=== PATIENT | male | born 1940 | race Caucasian/White ===

== ENCOUNTER 2016-10-26 11:41 | Inpatient (IN) | payer OTHER ==
[~2016-10-26] VITALS: Ht 170.2 cm; Wt 82.2 kg
[2016-10-26] VITALS (8 sets, daily range): BP systolic 98–128; BP diastolic 56–80
[~2016-10-26 11:41] MED LIST: ASPIR 8181 M1 PO; CARVEDILOL6.25 MG PO; CIPRO500 MG PO; COZAAR100 MG PO; CRESTOR20 MG PO; ELIQUIS5 MG PO; ENDOCET 5-3251 EACH PO; FINASTERIDE5 MG PO; FISH OIL 1,0001 EAC7 PO; FLUVIRIN IM; FOLIC ACID1 MG PO; HYDROCODON-ACE1 EAC8 PO; LORAZEPAM1 MG PO; LOSARTAN POTAS100 MG PO; METFORMIN HCL1000 MG PO; METFORMIN HCL500 MG PO; NIFEDICAL XL30 MG PO; NIFEDIPINE ER60 MG PO; PERCOCET 5/31 TABLET PO; ROPINIROLE HCL1 MG PO; TRAZODONE HCL50 MG PO; TYLENOL REGULA325 MG PO; ULTRAM50 MG PO; VALIUM5 MG PO; VITAMIN B-12500 MC2 PO; VITAMIN B-650 MG PO; XARELTO20 MG PO
[2016-10-26 12:37] LABS: EOSINOPHIL (%) 3.4 % (0-5); EOSINOPHIL COUNT 0.2 K/uL (0-0.3); HEMATOCRIT 23.3 % (38.0-50.0); IMMATURE GRANULOCYTE (%) 0.5 % (0.0-0.7); INSTRUMENT ABS NEUTROPHIL CT 4.5 K/uL; LYMPHOCYTE COUNT 0.9 K/uL (1.0-2.8); MCH 30.7 PG (29.0-34.0); MCHC 32.2 G/DL (30.0-36.0); MCV 95.5 FL (86-99); MEAN PLAT.VOLUME 10.4 uM^3 (9.0-12.4); MONOCYTE (%) 7.7 % (3-12); MONOCYTE COUNT 0.5 K/uL (0-0.8); NEUTROPHIL (%) 73.3 % (45-76); NEUTROPHIL COUNT 4.5 K/uL (1.8-6.4); PLATELET COUNT 301 K/uL (156-360); RBC DIS.WIDTH-CV 14.6 % (11.8-14.6); RBC DIS.WIDTH-SD 49.5 % (39-53); RED BLOOD COUNT 2.44 M/uL (4.00-5.50); WHITE BLOOD COUNT 6.1 K/uL (4.1-10.2)
[2016-10-26 12:44] LABS: INTER. NORMALIZED RATIO 1.5; PROTHROMBIN TIME 15.1 (9.2-11.2)
[2016-10-26 12:52] LABS: CHLORIDE 108 mEq/L (99-109); POTASSIUM 4.6 mEq/L (3.7-5.4); SODIUM 138 mEq/L (136-147)
[2016-10-26 12:54] LABS: GLUCOSE 91 mg/dL (70-99)
[2016-10-26 12:55] LABS: ANION GAP 10 MEQ/L (2-14)
[2016-10-26 12:58] LABS: GFR ESTIMATE (CALCULATED) > 59 mL/min/
[2016-10-26 12:59] LABS: UREA NITROGEN (BUN) 18 mg/dL (9-23)
[2016-10-26] MEDS ORDERED: CYANOCOBALAM1000 MCG PO (15:30)
[2016-10-26] MEDS ORDERED: METFORMIN HCL1000 MG PO (15:31)
[2016-10-26] MEDS ORDERED: NIFEDIPINE ER30 MG PO (15:32)
[2016-10-26] MEDS ORDERED: DUTASTERIDE0.5 MG PO (15:34)
[2016-10-26] MEDS ORDERED: OXYCODONE HCL5 MG PO (15:34)
[2016-10-26] MEDS ORDERED: NITROGLYCERIN0.4 MG SL (15:35)
[2016-10-26] MEDS ORDERED: LIPITOR40 MG PO (15:36)
[2016-10-27 03:24] VITALS: BP 95/54
[2016-10-27 07:15] VITALS: BP 115/58
[2016-10-27 07:57] LABS: HEMATOCRIT 27.2 % (38.0-50.0); MCV 92.8 FL (86-99)
[2016-10-27 08:10] LABS: INTER. NORMALIZED RATIO 1.1; PROTHROMBIN TIME 11.5 (9.2-11.2); PTT 23.8 (25-32)
[2016-10-27 08:23] LABS: ALKALINE PHOSPHATASE 54 IU/L (3-129); ANION GAP 7 MEQ/L (2-14); CHLORIDE 110 MEQ/L (99-109); GFR ESTIMATE (CALCULATED) > 59 mL/min/; GLUCOSE 81 mg/dL (70-99); POTASSIUM 4.1 MEQ/L (3.7-5.4); SAMPLE HEMOLYSIS CHECK 0; SAMPLE ICTERIC CHECK 0; SAMPLE LIPEMIA CHECK 0; SODIUM 141 MEQ/L (136-147); TOTAL BILIRUBIN 0.5 MG/DL (0.0-1.0); UREA NITROGEN (BUN) 14 mg/dL (9-23)
[2016-10-27 11:54] VITALS: BP 114/59
[2016-10-27 15:25] VITALS: BP 119/61
[2016-10-27 17:49] LABS: POINT-OF-CARE METER ID UU13113819
[2016-10-27 19:14] VITALS: BP 137/66
[2016-10-27 20:10] LABS: HEMATOCRIT 29.5 % (38.0-50.0); MCV 92.2 FL (86-99)
[2016-10-27 23:01] VITALS: BP 139/62
[2016-10-28 03:47] VITALS: BP 132/71
[2016-10-28 07:33] LABS: ANION GAP 11 MEQ/L (2-14); CHLORIDE 109 MEQ/L (99-109); GFR ESTIMATE (CALCULATED) > 59 mL/min/; GLUCOSE 69 mg/dL (70-99); POTASSIUM 4.2 MEQ/L (3.7-5.4); SAMPLE HEMOLYSIS CHECK 0; SAMPLE ICTERIC CHECK 0; SAMPLE LIPEMIA CHECK 0; SODIUM 142 MEQ/L (136-147); UREA NITROGEN (BUN) 11 mg/dL (9-23)
[2016-10-28 07:48] VITALS: BP 1347/63
[2016-10-28 08:23] LABS: HEMATOCRIT 26.6 % (38.0-50.0); MCV 92.7 FL (86-99)
[2016-10-28 08:25] LABS: EOSINOPHIL (%) 5.8 % (0-5); EOSINOPHIL COUNT 0.3 K/uL (0-0.3); HEMATOCRIT 27.2 % (38.0-50.0); IMMATURE GRANULOCYTE (%) 0.2 % (0.0-0.7); INSTRUMENT ABS NEUTROPHIL CT 2.7 K/uL; LYMPHOCYTE COUNT 0.8 K/uL (1.0-2.8); MCH 30.4 PG (29.0-34.0); MCHC 33.1 G/DL (30.0-36.0); MCV 91.9 FL (86-99); MEAN PLAT.VOLUME 10.2 uM^3 (9.0-12.4); MONOCYTE (%) 10.7 % (3-12); MONOCYTE COUNT 0.5 K/uL (0-0.8); NEUTROPHIL (%) 63.8 % (45-76); NEUTROPHIL COUNT 2.7 K/uL (1.8-6.4); PLATELET COUNT 263 K/uL (156-360); RBC DIS.WIDTH-CV 14.7 % (11.8-14.6); RBC DIS.WIDTH-SD 48.9 % (39-53); WHITE BLOOD COUNT 4.3 K/uL (4.1-10.2)
[2016-10-28 08:29] LABS: RED BLOOD COUNT 2.96 M/uL (4.00-5.50)
[2016-10-28 12:34] LABS: POINT-OF-CARE METER ID UU13113694
[2016-10-28 13:09] LABS: POINT-OF-CARE METER ID UU13113819; POINT-OF-CARE USER ID ADMKMM76
[2016-10-28 16:43] VITALS: BP 138/66
[2016-10-28 20:09] VITALS: BP 113/59
[2016-10-28 20:34] LABS: HEMATOCRIT 29.6 % (38.0-50.0); MCV 93.1 FL (86-99)
[2016-10-29] VITALS (8 sets, daily range): BP systolic 107–132; BP diastolic 60–75
[2016-10-29 06:32] LABS: HEMATOCRIT 25.7 % (38.0-50.0); MCV 91.8 FL (86-99)
[2016-10-29 06:33] LABS: EOSINOPHIL (%) 4.5 % (0-5); EOSINOPHIL COUNT 0.2 K/uL (0-0.3); HEMATOCRIT 26.2 % (38.0-50.0); IMMATURE GRANULOCYTE (%) 0.4 % (0.0-0.7); INSTRUMENT ABS NEUTROPHIL CT 3.5 K/uL; LYMPHOCYTE COUNT 0.9 K/uL (1.0-2.8); MCH 30.1 PG (29.0-34.0); MCHC 32.8 G/DL (30.0-36.0); MCV 91.6 FL (86-99); MEAN PLAT.VOLUME 10.3 uM^3 (9.0-12.4); MONOCYTE COUNT 0.6 K/uL (0-0.8); NEUTROPHIL (%) 64.9 % (45-76); NEUTROPHIL COUNT 3.5 K/uL (1.8-6.4); PLATELET COUNT 248 K/uL (156-360); RBC DIS.WIDTH-CV 14.5 % (11.8-14.6); RBC DIS.WIDTH-SD 48.4 % (39-53); RED BLOOD COUNT 2.86 M/uL (4.00-5.50); WHITE BLOOD COUNT 5.3 K/uL (4.1-10.2)
[2016-10-29 09:01] LABS: ANION GAP 8 MEQ/L (2-14); CHLORIDE 109 MEQ/L (99-109); GFR ESTIMATE (CALCULATED) 48 mL/min/; GLUCOSE 131 mg/dL (70-99); POTASSIUM 3.8 MEQ/L (3.7-5.4); SAMPLE HEMOLYSIS CHECK 0; SAMPLE ICTERIC CHECK 0; SAMPLE LIPEMIA CHECK 0; SODIUM 142 MEQ/L (136-147); UREA NITROGEN (BUN) 11 mg/dL (9-23)
[2016-10-29] MEDS ORDERED: PANTOPRAZOLE SO40 MG PO (12:34)
== END 2016-10-29 17:10 | disposition home or self-care (01) | DRG 378 ==
LOC: EME 11:41 → 5EAST 15:03 → EDOF 15:03 → 5EAST 20:28
PROVIDERS: Emergency Medicine; Family Medicine Sports Medicine
PROC: 30233N1 Transfusion of Nonautologous Red Blood Cells into Peripheral Vein, Percutaneous Approach (ICD-10-PCS; principal; 2016-10-26)
PROC: 0DJ08ZZ Inspection of Upper Intestinal Tract, Via Natural or Artificial Opening Endoscopic (ICD-10-PCS; 2016-10-27)
PROC: 0DJD8ZZ Inspection of Lower Intestinal Tract, Via Natural or Artificial Opening Endoscopic (ICD-10-PCS; 2016-10-28)
DX: K92.2 Gastrointestinal hemorrhage, unspecified (principal); E11.9 Type 2 diabetes mellitus without complications; I48.2 Chronic atrial fibrillation; N40.0 Benign prostatic hyperplasia without lower urinary tract symptoms; Z87.442 Personal history of urinary calculi; Z90.79 Acquired absence of other genital organ(s); Z95.0 Presence of cardiac pacemaker; I95.9 Hypotension, unspecified; K92.1 Melena; I10 Essential (primary) hypertension; E78.00 Pure hypercholesterolemia, unspecified; M19.90 Unspecified osteoarthritis, unspecified site; E78.5 Hyperlipidemia, unspecified; K21.9 Gastro-esophageal reflux disease without esophagitis; Z87.440 Personal history of urinary (tract) infections; Z79.01 Long term (current) use of anticoagulants; I25.10 Atherosclerotic heart disease of native coronary artery without angina pectoris; K57.90 Diverticulosis of intestine, part unspecified, without perforation or abscess without bleeding; D12.2 Benign neoplasm of ascending colon; D12.5 Benign neoplasm of sigmoid colon; K64.8 Other hemorrhoids; Z88.0 Allergy status to penicillin; Z87.891 Personal history of nicotine dependence; Z79.84 Long term (current) use of oral hypoglycemic drugs; D62 Acute posthemorrhagic anemia
CPT/HCPCS: 74250; 80048; 80053; 82948; 85014; 85018; 85025; 85610; 85730; 86900; 86901; 86920; 93005; 99281; 99285; C9113; J1940; J7030; P9016